=== PATIENT | female | born 1950 | race Caucasian/White ===

== ENCOUNTER 2019-02-25 16:38 | Inpatient (IN) | payer MEDICARE, MEDICAID ==
[~2019-02-25] VITALS: Ht 180.3 cm; Wt 147.3 kg
[~2019-02-25 16:38] MED LIST: CALC667T2 PO; CARSR60C PO; LEVO200T PO; SEVE800T8 PO; VIT1TABL50 PO
[2019-02-25] MEDS ORDERED: acetaminophen 325mg tablet PO ONE (17:05)
[2019-02-25 18:44] LABS: BASOPHILS % (AUTO) 0.1 % (0-1); EOSINOPHILS % (AUTO) 0.2 % (0-6); HEMATOCRIT 32.1 % (35.0-45.0); HEMOGLOBIN 10.8 g/dl (12.0-16.0); LYMPHOCYTES # (AUTO) 0.3 X10'3 (1.1-4.8); LYMPHOCYTES % (AUTO) 2.6 % (21-51); MEAN CORPUSCULAR HGB CONC 33.6 g/dL (33.0-36.5); MEAN CORPUSCULAR VOLUME 101.2 FL (78-98); MEAN PLATELET VOLUME 10.2 FL (7.4-10.4); MONOCYTES # (AUTO) 0.7 X10'3 (0-0.9); MONOCYTES % (AUTO) 6.1 % (2-12); NEUTROPHILS # (AUTO) 9.9 X10'3 (1.8-7.7); RED BLOOD COUNT 3.17 X10'6 (4.20-5.60); WHITE BLOOD COUNT 10.9 X10'3 (4.5-11.0)
[2019-02-25 18:51] LABS: PARTIAL THROMBOPLASTIN TIME 31 SECONDS (22-32)
[2019-02-25 19:04] LABS: ALANINE AMINOTRANSFERASE 19 U/L (12-78); ALBUMIN/GLOBULIN RATIO 0.6 (1.1-1.5); ALKALINE PHOSPHATASE 78 IU/L (46-116); ANION GAP 11 (8-16); ASPARTATE AMINO TRANSFERASE 12 U/L (10-37); BILIRUBIN,TOTAL 0.5 MG/DL (0.1-1.0); BLOOD UREA NITROGEN 34 MG/DL (7-18); BUN/CREATININE RATIO 5.1 (6.6-38.0); CALCIUM 9.1 MG/DL (8.5-10.1); CHLORIDE 99 MMOL/L (99-107); CREATININE 6.73 MG/DL (0.40-0.90); GLUCOSE 220 MG/DL (70-104); MAGNESIUM 1.8 MG/DL (1.5-2.4); PLATELET COUNT 78 X10'3 (140-440); POTASSIUM 3.9 MMOL/L (3.5-5.1); SODIUM 140 MMOL/L (135-145); TOTAL CARBON DIOXIDE 29.7 MMOL/L (24-32); eGFR 6 ML/MIN
[2019-02-25] MEDS ORDERED: normal saline 1000ML IV soln IVB ONE (19:05)
[2019-02-25] MEDS ORDERED: vancomycin/NS 1 GM ADD-VANTAGE 250 ML IV ONE (19:45)
[2019-02-25] MEDS ORDERED: piperacillin/tazo 3.375gm/50ml 50 ML IV ONE (19:45)
[2019-02-25 19:53] LABS: CLARITY,URINE CLOUDY (Clear); COLOR,URINE YELLOW (Yellow); GLUCOSE, URINE 100 mg/dl (Neg); KETONES,URINE NEGATIVE (Neg); LEUKOCYTE ESTERASE ,URINE MODERATE (Neg); NITRITES, URINE NEGATIVE (Neg); OCCULT BLOOD,URINE LARGE (Neg); PROTEIN,URINE 100 mg/dl (Neg); UROBILINOGEN,URINE 0.2 E.U/dL (0.2-1.0)
[2019-02-25 19:54] LABS: UA COLLECTION TYPE STRAIGHT CATH
[2019-02-25 19:59] LABS: BACTERIA,URINE 1+ /HPF (Neg); MUCUS STRANDS NONE SEEN /LPF (Neg); RBC,URINE 20-50 /HPF (0-2); SQUAMOUS EPITHELIAL CELL,UR FEW /LPF (FEW); WBC,URINE TNTC /HPF (0-4)
[2019-02-25] MEDS ORDERED: clindamycin 600mg/D5W 50ml 50 ML IV ONE (20:15)
[2019-02-25] MEDS ORDERED: DOCU-148 (20:20)
[2019-02-25] MEDS ORDERED: glucagon, human recombinant 1mg kit SUBCUT PRN (20:50)
[2019-02-25] MEDS ORDERED: acetaminophen 650mg rectal suppository RC PRN (20:50)
[2019-02-25] MEDS ORDERED: acetaminophen 325mg tablet PO PRN (20:50)
[2019-02-25] MEDS ORDERED: ipratropium/albuterol 3ml nebule NEB PRN (20:50)
[2019-02-25] MEDS ORDERED: MESSAGE TO PHARMACY PO ONE (20:50)
[2019-02-25] MEDS ORDERED: dextrose ORAL solution 15 GM/59 ML bottle PO PRN (20:50)
[2019-02-25] MEDS ORDERED: ondansetron/PF 4mg/2ml inj IV PRN ×2 (20:50→21:10)
[2019-02-25] MEDS ORDERED: dextrose 50%-water 50ml dispensing syringe IV PRN ×2 (20:50)
--- NOTE | 2019-02-25 20:59 | NUR ---
Patient to operating room at this time
[2019-02-25] MEDS: insulin glargine (Lantus) pen - multi-dose SQ SCH (21:00)
[2019-02-25] MEDS ORDERED: desflurane 240ml liquid inh. IH ONE (21:05)
[2019-02-25] MEDS ORDERED: ringers solution, lacted 1,000 ML IV SCH (21:08)
[2019-02-25] MEDS ORDERED: morphine 4 MG/ML inj SYRINge IV PRN ×2 (21:10)
[2019-02-25] MEDS ORDERED: proCHLORperazine 10 MG/2 ml inj IV PRN (21:10)
[2019-02-25] MEDS ORDERED: fentaNYL /PF 50mcg/ml 5ml ampule ONE (21:17)
[2019-02-25] MEDS ORDERED: midazolam 2 mg/2 ml injection ONE (21:17)
[2019-02-25] MEDS ORDERED: ATRACURIUM 10 MG/ML 5ML INJECTION IV ONE (21:20)
[2019-02-25] MEDS ORDERED: LIDOcaine 1%/PF 5ML 10 MG/ML VIAL ONE (21:26)
[2019-02-25] MEDS ORDERED: etomidate 2mg/ml inj. ONE (21:26)
--- NOTE | 2019-02-25 21:50 | NUR ---
Contacted patient's sister Myrima Avery @ [phone].
[2019-02-25 23:15] VITALS: BP 120/54
[2019-02-25 23:30] VITALS: BP 157/72
[2019-02-25] MEDS ORDERED: albuterol 2.5 MG/3 ML nebule NEB PRN (23:30)
[2019-02-25 23:45] VITALS: BP 179/89
[2019-02-25 23:45] LABS: ABG BASE EXCESS -0.2 mmol/L (-2.0-3.0); ABG HCO3 24.4 mmol/L (22.0-26.0); ABG OXYGEN SATURATION 99.5 % (95-98); ABG PCO2 (T) 40.4 mmHg (35.0-45.0); ABG PH (T) 7.401 (7.350-7.450); ABG PO2 (T) 181.8 mmHg (83-108); FCOHb 1.5 % (0.5-1.5); FMetHb 0.3 % (0.3-1.12); FO2Hb 97.7 % (94-100); MINUTE VOLUME 10 L/min; PATIENT TEMPERATURE 37.4; PEEP 5 cm H2O; RESPIRATORY RATE 14 b/min; RESPIRATORY RATE (OBSERVED) 14 b/min; TIDAL VOLUME 650 mL; TOTAL HEMOGLOBIN 11.1 G/dl (12.0-16.0)
[2019-02-26] VITALS (25 sets, daily range): BP systolic 84–144; BP diastolic 36–67
[2019-02-26] MEDS ORDERED: piperacillin/tazo 3.375gm/50ml 50 ML IV SCH
[2019-02-26] MEDS ORDERED: piperacillin/tazo 3.375gm/50ml 50 ML IV ONE (00:35)
[2019-02-26 00:41] LABS: BASOPHILS % (AUTO) 0.3 % (0-1); EOSINOPHILS % (AUTO) 0.1 % (0-6); HEMATOCRIT 31.2 % (35.0-45.0); HEMOGLOBIN 10.2 g/dl (12.0-16.0); LYMPHOCYTES # (AUTO) 0.4 X10'3 (1.1-4.8); LYMPHOCYTES % (AUTO) 3.5 % (21-51); MEAN CORPUSCULAR HEMOGLOBIN 33.1 PG (27.0-31.0); MEAN CORPUSCULAR HGB CONC 32.7 g/dL (33.0-36.5); MEAN CORPUSCULAR VOLUME 101.1 FL (78-98); MEAN PLATELET VOLUME 10.2 FL (7.4-10.4); MONOCYTES # (AUTO) 0.5 X10'3 (0-0.9); MONOCYTES % (AUTO) 4.7 % (2-12); NEUTROPHILS # (AUTO) 10.2 X10'3 (1.8-7.7); NEUTROPHILS % (AUTO) 91.4 % (42-75); PLATELET COUNT 84 X10'3 (140-440); RED BLOOD COUNT 3.09 X10'6 (4.20-5.60); RED CELL DISTRIBUTION WIDTH 14.8 % (11.5-14.5); WHITE BLOOD COUNT 11.1 X10'3 (4.5-11.0)
[2019-02-26] MEDS: insulin Lispro (HumaLOG) vial - multi-dose SQ SCH ×4 (00:47→19:25)
[2019-02-26 00:52] LABS: PARTIAL THROMBOPLASTIN TIME 31 SECONDS (22-32)
[2019-02-26 00:53] LABS: ALANINE AMINOTRANSFERASE 18 U/L (12-78); ALBUMIN 2.7 G/DL (3.4-5.0); ALBUMIN/GLOBULIN RATIO 0.6 (1.1-1.5); ALKALINE PHOSPHATASE 73 IU/L (46-116); ANION GAP 13 (8-16); ASPARTATE AMINO TRANSFERASE 12 U/L (10-37); BILIRUBIN,TOTAL 0.6 MG/DL (0.1-1.0); BLOOD UREA NITROGEN 37 MG/DL (7-18); CALCIUM 8.6 MG/DL (8.5-10.1); CHLORIDE 101 MMOL/L (99-107); CREATININE 7.41 MG/DL (0.40-0.90); GLUCOSE 242 MG/DL (70-104); MAGNESIUM 1.8 MG/DL (1.5-2.4); POTASSIUM 3.9 MMOL/L (3.5-5.1); SODIUM 142 MMOL/L (135-145); TOTAL CARBON DIOXIDE 28.1 MMOL/L (24-32); TOTAL PROTEIN 7.3 G/DL (6.4-8.2); eGFR 5 ML/MIN
[2019-02-26] MEDS: FENTANYL-0.9 % NACL/PF 100 ML IV PRN (02:39)
[2019-02-26] MEDS: midazolam 100mg in NS 100ml 100 ML IV PRN (02:40)
[2019-02-26] MEDS: ipratropium/albuterol 3ml nebule NEB SCH ×6 (02:52→23:25)
[2019-02-26 03:00] LABS: ABG BASE EXCESS 0.8 mmol/L (-2.0-3.0); ABG HCO3 26.2 mmol/L (22.0-26.0); ABG OXYGEN SATURATION 97.1 % (95-98); ABG PCO2 (T) 46.9 mmHg (35.0-45.0); ABG PH (T) 7.368 (7.350-7.450); ABG PO2 (T) 93.1 mmHg (83-108); FMetHb 0.3 % (0.3-1.12); FO2Hb 95.8 % (94-100); MINUTE VOLUME 10 L/min; PATIENT TEMPERATURE 37.6; PEEP 5 cm H2O; RESPIRATORY RATE 14 b/min; RESPIRATORY RATE (OBSERVED) 14 b/min; TIDAL VOLUME 650 mL; TOTAL HEMOGLOBIN 10.8 G/dl (12.0-16.0)
--- NOTE | 2019-02-26 06:29 | NUR ---
Problems reprioritized. Patient report given, questions answered & plan of care reviewed with MARSHA White.
[2019-02-26] MEDS ORDERED: docusate sod 100mg capsule PO SCH (08:00)
[2019-02-26] MEDS: pantoprazole 40 MG vial IV SCH (08:51)
[2019-02-26] MEDS: docusate sodium 100mg/10ml UD cup PO SCH ×2 (08:52→19:15)
[2019-02-26] MEDS: heparin, porcine 5000 units/ml vial SQ SCH ×2 (08:52→19:15)
[2019-02-26] MEDS: levoTHYROXINE sod inj. 100mcg/5 ml vial IV SCH (08:52)
[2019-02-26] MEDS: linezolid 600mg/300ml PREMIX 300 ML IV SCH ×2 (09:01→19:15)
--- NOTE | 2019-02-26 11:01 | NUR ---
Initial: Pt intubated s/p L labial I&D for necrotizing fasciitis; hx fever w/ nausea past 2 days, ESRD on HD, T2DM A1C <7. Diogenes 11 w/ labial wound. No edema present. NPO w/ OG in place; TF recs below in case prolonged intubation given healing needs. Started on zyvox and will need ed once stable prior to d/c. Will continue to monitor. Rec: 1. IF OGTF; Vital High Protein at 100ml/hr goal 2. IF TF; water flush 150ml Q4 3. IF TF; prealbumin Q /, daily wts 4. Once PO; MVI for wound healing needs 5. zyvox ed once stable prior to d/c 6. wts w/ HD Addendum: 02/26/19 at [address] Amended: Links added.
[2019-02-26 11:46] LABS: BASOPHILS % (AUTO) 0.4 % (0-1); EOSINOPHILS # (AUTO) 0.1 X10'3 (0-0.9); EOSINOPHILS % (AUTO) 0.6 % (0-6); HEMATOCRIT 30.1 % (35.0-45.0); HEMOGLOBIN 9.9 g/dl (12.0-16.0); LYMPHOCYTES # (AUTO) 0.5 X10'3 (1.1-4.8); LYMPHOCYTES % (AUTO) 5.7 % (21-51); MEAN CORPUSCULAR HEMOGLOBIN 33.2 PG (27.0-31.0); MEAN CORPUSCULAR VOLUME 100.7 FL (78-98); MONOCYTES # (AUTO) 0.4 X10'3 (0-0.9); NEUTROPHILS # (AUTO) 7.5 X10'3 (1.8-7.7); NEUTROPHILS % (AUTO) 88.3 % (42-75); PLATELET COUNT 84 X10'3 (140-440); RED BLOOD COUNT 2.99 X10'6 (4.20-5.60); RED CELL DISTRIBUTION WIDTH 14.9 % (11.5-14.5); WHITE BLOOD COUNT 8.5 X10'3 (4.5-11.0)
[2019-02-26 12:01] LABS: ALANINE AMINOTRANSFERASE 11 U/L (12-78); ALBUMIN 2.5 G/DL (3.4-5.0); ALBUMIN/GLOBULIN RATIO 0.6 (1.1-1.5); ALKALINE PHOSPHATASE 62 IU/L (46-116); ANION GAP 10 (8-16); ASPARTATE AMINO TRANSFERASE 12 U/L (10-37); BILIRUBIN,TOTAL 0.6 MG/DL (0.1-1.0); BLOOD UREA NITROGEN 41 MG/DL (7-18); BUN/CREATININE RATIO 5.1 (6.6-38.0); CALCIUM 8.9 MG/DL (8.5-10.1); CHLORIDE 101 MMOL/L (99-107); CREATININE 8.05 MG/DL (0.40-0.90); GLUCOSE 234 MG/DL (70-104); MAGNESIUM 1.8 MG/DL (1.5-2.4); PHOSPHORUS 2.3 MG/DL (2.3-4.5); POTASSIUM 3.7 MMOL/L (3.5-5.1); SODIUM 139 MMOL/L (135-145); TOTAL CARBON DIOXIDE 28.2 MMOL/L (24-32); eGFR 5 ML/MIN
[2019-02-26] MEDS: piperacillin/tazo 3.375gm/50ml 50 ML IV SCH (13:32)
[2019-02-26] MEDS: lactobacillus rhamnosus 10,000 MMU CELLS/CAPSULE PO SCH (19:15)
[2019-02-26] MEDS: insulin glargine (Lantus) pen - multi-dose SQ SCH (19:26)
[2019-02-27] VITALS (21 sets, daily range): BP systolic 103–133; BP diastolic 41–68
[2019-02-27] MEDS: piperacillin/tazo 3.375gm/50ml 50 ML IV SCH ×3 (00:51→23:09)
[2019-02-27] MEDS: mineral oil/petrolatum ophthal oint EACHEYE SCH ×4 (01:58→20:20)
[2019-02-27] MEDS: insulin Lispro (HumaLOG) vial - multi-dose SQ SCH ×4 (02:13→20:27)
[2019-02-27 02:25] LABS: BASOPHILS % (AUTO) 0.5 % (0-1); EOSINOPHILS # (AUTO) 0.1 X10'3 (0-0.9); HEMATOCRIT 26.7 % (35.0-45.0); HEMOGLOBIN 8.9 g/dl (12.0-16.0); LYMPHOCYTES # (AUTO) 0.5 X10'3 (1.1-4.8); LYMPHOCYTES % (AUTO) 6.4 % (21-51); MEAN CORPUSCULAR HEMOGLOBIN 33.8 PG (27.0-31.0); MEAN CORPUSCULAR HGB CONC 33.4 g/dL (33.0-36.5); MONOCYTES # (AUTO) 0.5 X10'3 (0-0.9); MONOCYTES % (AUTO) 5.9 % (2-12); NEUTROPHILS # (AUTO) 7.2 X10'3 (1.8-7.7); NEUTROPHILS % (AUTO) 86.2 % (42-75); PLATELET COUNT 90 X10'3 (140-440); RED BLOOD COUNT 2.64 X10'6 (4.20-5.60); WHITE BLOOD COUNT 8.3 X10'3 (4.5-11.0)
[2019-02-27 02:39] LABS: ALANINE AMINOTRANSFERASE 18 U/L (12-78); ALBUMIN 2.2 G/DL (3.4-5.0); ALBUMIN/GLOBULIN RATIO 0.5 (1.1-1.5); ALKALINE PHOSPHATASE 59 IU/L (46-116); ANION GAP 9 (8-16); ASPARTATE AMINO TRANSFERASE 21 U/L (10-37); BILIRUBIN,TOTAL 0.5 MG/DL (0.1-1.0); BLOOD UREA NITROGEN 48 MG/DL (7-18); BUN/CREATININE RATIO 5.2 (6.6-38.0); CHLORIDE 101 MMOL/L (99-107); CREATININE 9.29 MG/DL (0.40-0.90); GLUCOSE 181 MG/DL (70-104); PHOSPHORUS 2.5 MG/DL (2.3-4.5); POTASSIUM 3.8 MMOL/L (3.5-5.1); SODIUM 141 MMOL/L (135-145); TOTAL CARBON DIOXIDE 30.8 MMOL/L (24-32); TOTAL PROTEIN 6.8 G/DL (6.4-8.2); eGFR 4 ML/MIN
[2019-02-27] MEDS ORDERED: VANCOMYCIN LEVEL IV SCH (03:00)
[2019-02-27] MEDS: ipratropium/albuterol 3ml nebule NEB SCH ×6 (03:05→23:31)
[2019-02-27 03:15] LABS: ABG BASE EXCESS 4.2 mmol/L (-2.0-3.0); ABG HCO3 28.3 mmol/L (22.0-26.0); ABG OXYGEN SATURATION 95.7 % (95-98); ABG PCO2 (T) 41.8 mmHg (35.0-45.0); ABG PH (T) 7.451 (7.350-7.450); ABG PO2 (T) 75.2 mmHg (83-108); ALLEN'S TEST Positive; FCOHb 1.7 % (0.5-1.5); FMetHb 0.3 % (0.3-1.12); FO2Hb 93.8 % (94-100); MINUTE VOLUME 9 L/min; PATIENT TEMPERATURE 37.7; PEEP 5 cm H2O; RESPIRATORY RATE 12 b/min; RESPIRATORY RATE (OBSERVED) 12 b/min; TIDAL VOLUME 650 mL; TOTAL HEMOGLOBIN 9.4 G/dl (12.0-16.0)
--- NOTE | 2019-02-27 06:30 | NUR ---
Problems reprioritized. Patient report given, questions answered & plan of care reviewed with MARSHA Cisneros.
[2019-02-27] MEDS: midazolam 100mg in NS 100ml 100 ML IV PRN (08:49)
[2019-02-27] MEDS: FENTANYL-0.9 % NACL/PF 100 ML IV PRN (08:49)
[2019-02-27] MEDS: docusate sodium 100mg/10ml UD cup PO SCH ×2 (09:13→20:20)
[2019-02-27] MEDS: linezolid 600mg/300ml PREMIX 300 ML IV SCH ×2 (09:13→20:21)
[2019-02-27] MEDS: lactobacillus rhamnosus 10,000 MMU CELLS/CAPSULE PO SCH ×2 (09:14→20:20)
[2019-02-27] MEDS: heparin, porcine 5000 units/ml vial SQ SCH ×2 (09:14→20:20)
[2019-02-27] MEDS: levoTHYROXINE sod inj. 100mcg/5 ml vial IV SCH (09:14)
[2019-02-27] MEDS: pantoprazole 40 MG vial IV SCH (14:42)
--- NOTE | 2019-02-27 16:30 | NUR ---
sedation (Versed) left off most of afternoon to determine weather pt can be extubated. Awake and follows commands well but did not pass weaning parameters. Sedation turned back on.
--- NOTE | 2019-02-27 17:00 | NUR ---
Dressing to left labia changed per Dr Dang orders using sterile procedure. Old gauze packing removed with strong foul odor, drainage light brown in color. Picture taken and placed in chart. Redressed with dry gauze packing per order, followed by non adherant dressing and abd pad with paper tape to secure.
--- NOTE | 2019-02-27 18:30 | NUR ---
Patient in room CICU 2013. I have received report from MARSHA Cisneros and had the opportunity to ask questions and assume patient care.
--- NOTE | 2019-02-27 20:10 | NUR ---
Confirmed with TERESO Paredes that it is ok to have low dose Fentanyl running with the Zyvox choice of antibiotic. Also, she said to hold off on the Lactulose for now considering the possibility of contamination into the open labial site, day shift to check with wound care and underground distribution engineer/surgeon on how to proceed with bowel care maintenance.
[2019-02-27] MEDS: insulin glargine (Lantus) pen - multi-dose SQ SCH (20:28)
[2019-02-27] MEDS ORDERED: lactulose 20gm/30ml cup PO PRN (20:50)
[2019-02-28] VITALS (22 sets, daily range): BP systolic 92–142; BP diastolic 40–73
[2019-02-28] MEDS: mineral oil/petrolatum ophthal oint EACHEYE SCH ×4 (02:11→20:00)
[2019-02-28] MEDS: insulin Lispro (HumaLOG) vial - multi-dose SQ SCH ×3 (02:13→14:35)
[2019-02-28 03:05] LABS: BASOPHILS % (AUTO) 0.5 % (0-1); EOSINOPHILS # (AUTO) 0.2 X10'3 (0-0.9); EOSINOPHILS % (AUTO) 2.1 % (0-6); HEMATOCRIT 26.8 % (35.0-45.0); HEMOGLOBIN 8.9 g/dl (12.0-16.0); LYMPHOCYTES # (AUTO) 0.6 X10'3 (1.1-4.8); LYMPHOCYTES % (AUTO) 7.2 % (21-51); MEAN CORPUSCULAR HEMOGLOBIN 33.1 PG (27.0-31.0); MEAN CORPUSCULAR HGB CONC 33.1 g/dL (33.0-36.5); MEAN CORPUSCULAR VOLUME 100.1 FL (78-98); MEAN PLATELET VOLUME 10.2 FL (7.4-10.4); MONOCYTES # (AUTO) 0.4 X10'3 (0-0.9); MONOCYTES % (AUTO) 5.2 % (2-12); NEUTROPHILS # (AUTO) 6.5 X10'3 (1.8-7.7); PLATELET COUNT 109 X10'3 (140-440); RED BLOOD COUNT 2.68 X10'6 (4.20-5.60); RED CELL DISTRIBUTION WIDTH 14.9 % (11.5-14.5); WHITE BLOOD COUNT 7.6 X10'3 (4.5-11.0)
[2019-02-28 03:31] LABS: ALANINE AMINOTRANSFERASE 15 U/L (12-78); ALBUMIN 2.1 G/DL (3.4-5.0); ALBUMIN/GLOBULIN RATIO 0.5 (1.1-1.5); ALKALINE PHOSPHATASE 68 IU/L (46-116); ANION GAP 13 (8-16); ASPARTATE AMINO TRANSFERASE 21 U/L (10-37); BILIRUBIN,TOTAL 0.5 MG/DL (0.1-1.0); BLOOD UREA NITROGEN 58 MG/DL (7-18); BUN/CREATININE RATIO 5.5 (6.6-38.0); CHLORIDE 99 MMOL/L (99-107); GLUCOSE 169 MG/DL (70-104); MAGNESIUM 1.9 MG/DL (1.5-2.4); POTASSIUM 3.9 MMOL/L (3.5-5.1); SODIUM 139 MMOL/L (135-145); TOTAL CARBON DIOXIDE 26.9 MMOL/L (24-32); TOTAL PROTEIN 6.7 G/DL (6.4-8.2); eGFR 4 ML/MIN
[2019-02-28] MEDS: ipratropium/albuterol 3ml nebule NEB SCH ×6 (03:36→23:25)
[2019-02-28 04:05] LABS: ABG BASE EXCESS 1.9 mmol/L (-2.0-3.0); ABG HCO3 25.8 mmol/L (22.0-26.0); ABG OXYGEN SATURATION 96.3 % (95-98); ABG PCO2 (T) 37.7 mmHg (35.0-45.0); ABG PH (T) 7.453 (7.350-7.450); ABG PO2 (T) 82.2 mmHg (83-108); FCOHb 1.2 % (0.5-1.5); FMetHb 0.3 % (0.3-1.12); FO2Hb 94.9 % (94-100); MINUTE VOLUME 8 L/min; PATIENT TEMPERATURE 37.2; PEEP 5 cm H2O; RESPIRATORY RATE 12 b/min; RESPIRATORY RATE (OBSERVED) 12 b/min; TIDAL VOLUME 650 mL; TOTAL HEMOGLOBIN 9.4 G/dl (12.0-16.0)
--- NOTE | 2019-02-28 06:07 | NUR ---
Problems reprioritized. Patient report given, questions answered & plan of care reviewed with MARSHA Cisneros.
--- NOTE | 2019-02-28 06:12 | NUR ---
Patient in room CICU 2013. I have received report from MARSHA Short and had the opportunity to ask questions and assume patient care.
[2019-02-28] MEDS: docusate sodium 100mg/10ml UD cup PO SCH ×2 (08:00→20:00)
[2019-02-28] MEDS: heparin, porcine 5000 units/ml vial SQ SCH ×2 (09:41→20:39)
[2019-02-28] MEDS: pantoprazole 40 MG vial IV SCH (09:42)
[2019-02-28] MEDS: linezolid 600mg/300ml PREMIX 300 ML IV SCH ×2 (09:42→20:36)
[2019-02-28] MEDS: levoTHYROXINE sod inj. 100mcg/5 ml vial IV SCH (09:42)
[2019-02-28] MEDS: lactobacillus rhamnosus 10,000 MMU CELLS/CAPSULE PO SCH ×2 (09:43→20:00)
[2019-02-28] MEDS ORDERED: normal saline 1000ml 250 ML IV PRN (11:22)
[2019-02-28] MEDS ORDERED: normal saline 1000ml 100 ML IV PRN (11:22)
[2019-02-28] MEDS ORDERED: epoetin 20,000 units/ml inj IV ONE (11:25)
[2019-02-28] MEDS ORDERED: LIDOcaine 1% (10mg/ml) 2ml vial SQ ONE (11:25)
--- NOTE | 2019-02-28 12:22 | NUR ---
RECOMMEND: 1. Daily bathing with no rinse skin cleanser. 2. Cream/Lotion to be applied to skin after bathing. 3. Hyun care Q shift and prn soiling followed by with Barrier Cream. 4. Turn patient Q 1-2 hrs and reposition with pillows. 5. Float heels to offload pressure.
--- NOTE | 2019-02-28 12:27 | NUR ---
WOUND INFECTION EDUCATION PROVIDED BY WOUND CARE 1. Patient instructed to call their primary doctor, or go the ED immediately if any of the following symptoms occur: * Increased pain in wound * Increase in drainage from the wound * Redness in the skin surrounding the wound * Warmth in the skin surrounding the wound * Bleeding from the wound * Temperature of 101 or greater 2. If any of these occur while in the hospital tell a nurse immediately. Addendum: 02/28/19 at 1229 by Sheyla Berg RN Amended: Links added.
[2019-02-28] MEDS: piperacillin/tazo 3.375gm/50ml 50 ML IV SCH (12:44)
[2019-02-28] MEDS ORDERED: racepinephrine 11.25mg/0.5ml nebule IH PRN (14:15)
--- NOTE | 2019-02-28 18:20 | NUR ---
Patient in room CICU 2012. I have received report from Amelia LARSON and had the opportunity to ask questions and assume patient care. Pt resting in bed on 2LNC with spo2 at 96%, no c/o pain, dialysis completing at this time, no s/s of distress. Please see IV flowsheet, eMAR, EMR and interventions for further information. All monitoring alarms audible. Will continue to monitor.
[2019-02-28] MEDS: insulin glargine (Lantus) pen - multi-dose SQ SCH (20:43)
[2019-03-01] VITALS (22 sets, daily range): BP systolic 98–128; BP diastolic 43–65
[2019-03-01] MEDS: piperacillin/tazo 3.375gm/50ml 50 ML IV SCH ×2 (00:58→13:43)
[2019-03-01] MEDS: mineral oil/petrolatum ophthal oint EACHEYE SCH ×4 (02:00→19:00)
[2019-03-01 02:30] LABS: BASOPHILS % (AUTO) 0.3 % (0-1); EOSINOPHILS # (AUTO) 0.2 X10'3 (0-0.9); EOSINOPHILS % (AUTO) 2.9 % (0-6); HEMATOCRIT 28.6 % (35.0-45.0); HEMOGLOBIN 9.3 g/dl (12.0-16.0); LYMPHOCYTES # (AUTO) 0.4 X10'3 (1.1-4.8); LYMPHOCYTES % (AUTO) 5.8 % (21-51); MEAN CORPUSCULAR HEMOGLOBIN 32.9 PG (27.0-31.0); MEAN CORPUSCULAR HGB CONC 32.4 g/dL (33.0-36.5); MEAN CORPUSCULAR VOLUME 101.5 FL (78-98); MEAN PLATELET VOLUME 8.8 FL (7.4-10.4); MONOCYTES # (AUTO) 0.4 X10'3 (0-0.9); MONOCYTES % (AUTO) 5.7 % (2-12); NEUTROPHILS # (AUTO) 6.3 X10'3 (1.8-7.7); NEUTROPHILS % (AUTO) 85.3 % (42-75); PLATELET COUNT 110 X10'3 (140-440); RED BLOOD COUNT 2.82 X10'6 (4.20-5.60); RED CELL DISTRIBUTION WIDTH 15.4 % (11.5-14.5); WHITE BLOOD COUNT 7.4 X10'3 (4.5-11.0)
[2019-03-01 02:42] LABS: ALANINE AMINOTRANSFERASE 22 U/L (12-78); ALBUMIN 2.1 G/DL (3.4-5.0); ALBUMIN/GLOBULIN RATIO 0.4 (1.1-1.5); ALKALINE PHOSPHATASE 75 IU/L (46-116); ANION GAP 9 (8-16); ASPARTATE AMINO TRANSFERASE 20 U/L (10-37); BILIRUBIN,TOTAL 0.4 MG/DL (0.1-1.0); BLOOD UREA NITROGEN 34 MG/DL (7-18); BUN/CREATININE RATIO 4.9 (6.6-38.0); CALCIUM 8.7 MG/DL (8.5-10.1); CHLORIDE 100 MMOL/L (99-107); GLUCOSE 131 MG/DL (70-104); MAGNESIUM 1.9 MG/DL (1.5-2.4); PHOSPHORUS 4.1 MG/DL (2.3-4.5); SODIUM 139 MMOL/L (135-145); TOTAL CARBON DIOXIDE 29.9 MMOL/L (24-32); TOTAL PROTEIN 6.9 G/DL (6.4-8.2); eGFR 6 ML/MIN
[2019-03-01] MEDS: ipratropium/albuterol 3ml nebule NEB SCH ×6 (03:10→22:54)
--- NOTE | 2019-03-01 06:26 | NUR ---
Problems reprioritized. Patient report given, questions answered & plan of care reviewed with Amelia LARSON.
--- NOTE | 2019-03-01 06:38 | NUR ---
Patient in room CICU 2013. I have received report from MARSHA Perla and had the opportunity to ask questions and assume patient care.
[2019-03-01] MEDS: levoTHYROXINE sod inj. 100mcg/5 ml vial IV SCH (07:33)
[2019-03-01] MEDS: heparin, porcine 5000 units/ml vial SQ SCH ×2 (07:33→20:25)
[2019-03-01] MEDS: linezolid 600mg/300ml PREMIX 300 ML IV SCH ×2 (07:33→20:22)
[2019-03-01] MEDS: docusate sodium 100mg/10ml UD cup PO SCH ×2 (08:00→20:25)
[2019-03-01] MEDS: pantoprazole 40 MG vial IV SCH (08:44)
[2019-03-01] MEDS: lactobacillus rhamnosus 10,000 MMU CELLS/CAPSULE PO SCH ×2 (08:48→20:25)
[2019-03-01] MEDS: insulin Lispro (HumaLOG) vial - multi-dose SQ SCH ×2 (13:36→18:28)
[2019-03-01] MEDS: insulin glargine (Lantus) pen - multi-dose SQ SCH (20:30)
--- NOTE | 2019-03-01 21:41 | NUR ---
Problems reprioritized. Patient report given, questions answered & plan of care reviewed with Luc LARSON. Pt will be transferred to room 3013B.
--- NOTE | 2019-03-01 21:42 | NUR ---
Patient in room PCU 3013. I have received report from Minda LARSON and had the opportunity to ask questions and assume patient care.
--- NOTE | 2019-03-01 22:00 | NUR ---
Pt transferred to 3013B with all belongings, pt stable upon transfer, no s/s of distress, bedside report complete with Humble LARSON.
[2019-03-01] MEDS ORDERED: diphenhydrAMINE 25mg capsule PO PRN (22:55)
[2019-03-02] MEDS: piperacillin/tazo 3.375gm/50ml 50 ML IV SCH ×3 (00:04→23:31)
[2019-03-02 02:00] VITALS: BP 153/67
[2019-03-02] MEDS: ipratropium/albuterol 3ml nebule NEB SCH ×6 (03:00→23:50)
[2019-03-02 05:39] LABS: BASOPHILS % (AUTO) 0.3 % (0-1); EOSINOPHILS # (AUTO) 0.2 X10'3 (0-0.9); EOSINOPHILS % (AUTO) 3.2 % (0-6); HEMATOCRIT 28.4 % (35.0-45.0); HEMOGLOBIN 9.4 g/dl (12.0-16.0); LYMPHOCYTES # (AUTO) 0.5 X10'3 (1.1-4.8); LYMPHOCYTES % (AUTO) 6.5 % (21-51); MEAN CORPUSCULAR HEMOGLOBIN 33.8 PG (27.0-31.0); MEAN CORPUSCULAR HGB CONC 33.1 g/dL (33.0-36.5); MEAN CORPUSCULAR VOLUME 102.2 FL (78-98); MEAN PLATELET VOLUME 9.2 FL (7.4-10.4); MONOCYTES # (AUTO) 0.5 X10'3 (0-0.9); MONOCYTES % (AUTO) 5.9 % (2-12); NEUTROPHILS # (AUTO) 6.4 X10'3 (1.8-7.7); NEUTROPHILS % (AUTO) 84.1 % (42-75); PLATELET COUNT 111 X10'3 (140-440); RED BLOOD COUNT 2.78 X10'6 (4.20-5.60); RED CELL DISTRIBUTION WIDTH 15.2 % (11.5-14.5); WHITE BLOOD COUNT 7.7 X10'3 (4.5-11.0)
--- NOTE | 2019-03-02 06:10 | NUR ---
Patient in room PCU 3013. I have received report from Tyson LARSON and had the opportunity to ask questions and assume patient care.
--- NOTE | 2019-03-02 06:16 | NUR ---
Problems reprioritized. Patient report given, questions answered & plan of care reviewed with Jens RN/Brinda LARSON.
[2019-03-02 06:17] LABS: ALANINE AMINOTRANSFERASE 22 U/L (12-78); ALBUMIN 2.1 G/DL (3.4-5.0); ALBUMIN/GLOBULIN RATIO 0.5 (1.1-1.5); ALKALINE PHOSPHATASE 75 IU/L (46-116); ANION GAP 13 (8-16); ASPARTATE AMINO TRANSFERASE 19 U/L (10-37); BILIRUBIN,TOTAL 0.4 MG/DL (0.1-1.0); BLOOD UREA NITROGEN 48 MG/DL (7-18); BUN/CREATININE RATIO 5.5 (6.6-38.0); CALCIUM 8.8 MG/DL (8.5-10.1); CHLORIDE 99 MMOL/L (99-107); CREATININE 8.66 MG/DL (0.40-0.90); GLUCOSE 106 MG/DL (70-104); MAGNESIUM 2.1 MG/DL (1.5-2.4); PHOSPHORUS 5.3 MG/DL (2.3-4.5); POTASSIUM 4.4 MMOL/L (3.5-5.1); SODIUM 139 MMOL/L (135-145); TOTAL CARBON DIOXIDE 27.1 MMOL/L (24-32); TOTAL PROTEIN 6.7 G/DL (6.4-8.2); eGFR 5 ML/MIN
--- NOTE | 2019-03-02 06:25 | NUR ---
Patient in room PCU 3011. I have received report from Humble and had the opportunity to ask questions and assume patient care.
[2019-03-02 07:00] VITALS: BP 105/53
[2019-03-02] MEDS ORDERED: normal saline 1000ml 250 ML IV PRN (08:00)
[2019-03-02] MEDS: docusate sodium 100mg/10ml UD cup PO SCH ×2 (08:00→19:16)
[2019-03-02] MEDS ORDERED: LIDOcaine 1% (10mg/ml) 2ml vial SQ ONE (08:00)
[2019-03-02] MEDS ORDERED: epoetin 20,000 units/ml inj IV ONE (08:00)
[2019-03-02] MEDS ORDERED: heparin 1,000unit/ml 10ml vial 10 ML IV ONE (08:00)
[2019-03-02] MEDS: lactobacillus rhamnosus 10,000 MMU CELLS/CAPSULE PO SCH ×2 (09:13→19:16)
[2019-03-02] MEDS: pantoprazole 40 MG vial IV SCH (09:14)
[2019-03-02] MEDS: levoTHYROXINE sod inj. 100mcg/5 ml vial IV SCH (09:14)
[2019-03-02] MEDS: heparin, porcine 5000 units/ml vial SQ SCH ×2 (09:28→19:15)
[2019-03-02] MEDS: insulin Lispro (HumaLOG) vial - multi-dose SQ SCH ×2 (09:34→19:13)
[2019-03-02 11:00] VITALS: BP 116/60
[2019-03-02 15:00] VITALS: BP 121/54
--- NOTE | 2019-03-02 16:42 | NUR ---
Reassessment: Pt continues with average 50% PO intake however down to 0-25% at lunch today. Pt seen at bedside reports low appetite and states she doesn't like the pureed texture. Informed pt that this diet is appropriate for her at this time per ST recs and pt expressed understanding. Pt agreeable to Nepro TID to optimize PO intake at this time given increased protein needs r/t HD and wound. ONS to be sent pending MD verification in [facility]. Pt requests no milk to drink, d/w dietary. Pt recently receiving Zyvox with last dose given 03/01 per med list, pt was provided with written and verbal low tyramine nutrition therapy education with RD contact information. LBM 03/02. Will continue to follow. Recommend: 1. continue pureed diet, thin liquids, carb controlled per ST 2. Nepro TID, to be sent pending MD verification in [facility] 3. Continue bowel care 4. weight per rx Addendum: 03/02/19 at [address] Amended: Links added.
[2019-03-02] MEDS: acetaminophen 325mg tablet PO PRN (17:30)
[2019-03-02 18:00] VITALS: BP 122/54
--- NOTE | 2019-03-02 18:10 | NUR ---
Problems reprioritized. Patient report given, questions answered & plan of care reviewed with Daniel LARSON.
--- NOTE | 2019-03-02 18:10 | NUR ---
I have reviewed Myrna LARSON ([place]) charting and I agree with it.
--- NOTE | 2019-03-02 18:22 | NUR ---
Patient in room PCU 3013. I have received report from Jens RN and MARSHA Parry and had the opportunity to ask questions and assume patient care.
--- NOTE | 2019-03-02 18:29 | NUR ---
Problems reprioritized. Patient report given, questions answered & plan of care reviewed with Addendum: 03/02/19 at 1831 by Brinda Jain RN Problems reprioritized. Patient report given, questions answered & plan of care reviewed with Rebeca
[2019-03-02] MEDS: NUT.TX.IMP.RENAL FXN,LAC-REDUC (Nepro) 237 ML VANILLA PO SCH (19:16)
[2019-03-02] MEDS: insulin glargine (Lantus) pen - multi-dose SQ SCH (21:11)
[2019-03-02 22:00] VITALS: BP 118/40
[2019-03-03] VITALS (8 sets, daily range): BP systolic 100–142; BP diastolic 40–63
[2019-03-03] MEDS: ipratropium/albuterol 3ml nebule NEB SCH ×6 (03:00→23:50)
[2019-03-03 05:50] LABS: BASOPHILS % (AUTO) 0.5 % (0-1); EOSINOPHILS # (AUTO) 0.2 X10'3 (0-0.9); EOSINOPHILS % (AUTO) 2.5 % (0-6); HEMATOCRIT 30.6 % (35.0-45.0); LYMPHOCYTES # (AUTO) 0.4 X10'3 (1.1-4.8); LYMPHOCYTES % (AUTO) 4.4 % (21-51); MEAN CORPUSCULAR HEMOGLOBIN 33.7 PG (27.0-31.0); MEAN CORPUSCULAR HGB CONC 32.6 g/dL (33.0-36.5); MEAN CORPUSCULAR VOLUME 103.5 FL (78-98); MEAN PLATELET VOLUME 8.4 FL (7.4-10.4); MONOCYTES # (AUTO) 0.5 X10'3 (0-0.9); MONOCYTES % (AUTO) 6.2 % (2-12); NEUTROPHILS # (AUTO) 7.2 X10'3 (1.8-7.7); NEUTROPHILS % (AUTO) 86.4 % (42-75); PLATELET COUNT 107 X10'3 (140-440); RED BLOOD COUNT 2.96 X10'6 (4.20-5.60); RED CELL DISTRIBUTION WIDTH 15.2 % (11.5-14.5); WHITE BLOOD COUNT 8.3 X10'3 (4.5-11.0)
--- NOTE | 2019-03-03 06:09 | NUR ---
Problems reprioritized. Patient report given, questions answered & plan of care reviewed with MARSHA Colindres.
--- NOTE | 2019-03-03 06:10 | NUR ---
Problems reprioritized. Patient report given, questions answered & plan of care reviewed with Daniel LARSON.
--- NOTE | 2019-03-03 06:22 | NUR ---
Patient in room PCU 3013. I have received report from Rebeca and had the opportunity to ask questions and assume patient care.
[2019-03-03 06:23] LABS: ALANINE AMINOTRANSFERASE 23 U/L (12-78); ALBUMIN 2.3 G/DL (3.4-5.0); ALBUMIN/GLOBULIN RATIO 0.5 (1.1-1.5); ALKALINE PHOSPHATASE 69 IU/L (46-116); ANION GAP 10 (8-16); ASPARTATE AMINO TRANSFERASE 17 U/L (10-37); BILIRUBIN,TOTAL 0.4 MG/DL (0.1-1.0); BLOOD UREA NITROGEN 30 MG/DL (7-18); BUN/CREATININE RATIO 4.8 (6.6-38.0); CALCIUM 8.8 MG/DL (8.5-10.1); CHLORIDE 102 MMOL/L (99-107); CREATININE 6.29 MG/DL (0.40-0.90); GLUCOSE 108 MG/DL (70-104); PHOSPHORUS 4.4 MG/DL (2.3-4.5); POTASSIUM 4.4 MMOL/L (3.5-5.1); SODIUM 141 MMOL/L (135-145); TOTAL CARBON DIOXIDE 28.9 MMOL/L (24-32); eGFR 7 ML/MIN
[2019-03-03] MEDS: lactobacillus rhamnosus 10,000 MMU CELLS/CAPSULE PO SCH ×2 (07:59→19:25)
[2019-03-03] MEDS: levoTHYROXINE 100mcg tablet PO SCH (07:59)
[2019-03-03] MEDS: docusate sodium 100mg/10ml UD cup PO SCH ×3 (08:00→19:31)
[2019-03-03] MEDS: heparin, porcine 5000 units/ml vial SQ SCH ×2 (08:01→19:26)
[2019-03-03] MEDS: NUT.TX.IMP.RENAL FXN,LAC-REDUC (Nepro) 237 ML VANILLA PO SCH ×3 (08:01→18:00)
[2019-03-03] MEDS: pantoprazole 40mg Tablet.DR PO SCH (08:01)
[2019-03-03] MEDS: insulin Lispro (HumaLOG) vial - multi-dose SQ SCH ×3 (09:21→18:47)
--- NOTE | 2019-03-03 11:40 | NUR ---
I have reviewed and agree with all medications administered and interventions performed by [facility] Student(UMBERTO VICENTE) Addendum: 03/03/19 at 1140 [address]se [address] RT Amended: Links added.
[2019-03-03] MEDS: piperacillin/tazo 3.375gm/50ml 50 ML IV SCH ×2 (11:56→23:35)
--- NOTE | 2019-03-03 12:00 | NUR ---
Primary RN notified of pt's low FSBG. Pt states she feels her sugar is low.
[2019-03-03] MEDS: dextrose ORAL solution 15 GM/59 ML bottle PO PRN ×2 (12:04→12:42)
[2019-03-03] MEDS: acetaminophen 325mg tablet PO PRN ×2 (13:15→19:25)
--- NOTE | 2019-03-03 13:25 | NUR ---
1200 Blood sugar was 66, glucose shot administered per protocol, 15 minutes later the patients blood sugar was 69, patient stated she was not going to eat much. Per protocol, another glucose shot administered and effective in increasing blood sugar to 93.
--- NOTE | 2019-03-03 18:00 | NUR ---
I have reviewed Myrna LARSON ([place]) charting and I agree with it.
--- NOTE | 2019-03-03 18:15 | NUR ---
Problems reprioritized. Patient report given, questions answered & plan of care reviewed with Franny LARSON.
--- NOTE | 2019-03-03 18:35 | NUR ---
Patient in room PCU 3011. I have received report from JOHANNA GIBBS RN and had the opportunity to ask questions and assume patient care. Addendum: 03/03/19 at 1836 by Carole Agee RN PLEASE DISREGARD ROOM NUMBER, IT IS 3013 B
[2019-03-03] MEDS: insulin glargine (Lantus) pen - multi-dose SQ SCH (21:05)
--- NOTE | 2019-03-03 22:22 | NUR ---
Tech took BP and it was 80/40, bolus of fluids running now. Addendum: 03/03/19 at 2226 by Carole Agee RN after getting the 80/40 BP on patient, tech rechecked manually and got 100/60. Bolus is running, will recheck after bolus is done.
--- NOTE | 2019-03-03 22:42 | NUR ---
THE BOLUS WAS STOPPED AND BP RECHECKED RESULTING IN 133/63.
[2019-03-04 06:00] VITALS: BP 90/53
--- NOTE | 2019-03-04 06:10 | NUR ---
Patient in room PCU 3013. I have received report from Franny LARSON and had the opportunity to ask questions and assume patient care.
--- NOTE | 2019-03-04 06:12 | NUR ---
Problems reprioritized. Patient report given, questions answered & plan of care reviewed with SAI.
[2019-03-04 06:44] LABS: ALANINE AMINOTRANSFERASE 21 U/L (12-78); ALBUMIN 2.3 G/DL (3.4-5.0); ALBUMIN/GLOBULIN RATIO 0.5 (1.1-1.5); ALKALINE PHOSPHATASE 77 IU/L (46-116); ANION GAP 11 (8-16); ASPARTATE AMINO TRANSFERASE 12 U/L (10-37); BILIRUBIN,TOTAL 0.3 MG/DL (0.1-1.0); BLOOD UREA NITROGEN 44 MG/DL (7-18); BUN/CREATININE RATIO 5.7 (6.6-38.0); CHLORIDE 101 MMOL/L (99-107); CREATININE 7.76 MG/DL (0.40-0.90); GLUCOSE 140 MG/DL (70-104); MAGNESIUM 2.3 MG/DL (1.5-2.4); PHOSPHORUS 5.7 MG/DL (2.3-4.5); POTASSIUM 4.2 MMOL/L (3.5-5.1); SODIUM 139 MMOL/L (135-145); TOTAL CARBON DIOXIDE 26.8 MMOL/L (24-32); TOTAL PROTEIN 6.8 G/DL (6.4-8.2); eGFR 5 ML/MIN
[2019-03-04] MEDS: ipratropium/albuterol 3ml nebule NEB SCH ×3 (07:29→15:14)
[2019-03-04 07:38] LABS: BASOPHILS % (AUTO) 0.2 % (0-1); EOSINOPHILS # (AUTO) 0.2 X10'3 (0-0.9); EOSINOPHILS % (AUTO) 2.3 % (0-6); HEMOGLOBIN 10.4 g/dl (12.0-16.0); LYMPHOCYTES # (AUTO) 0.5 X10'3 (1.1-4.8); LYMPHOCYTES % (AUTO) 6.7 % (21-51); MEAN CORPUSCULAR HEMOGLOBIN 33.2 PG (27.0-31.0); MEAN CORPUSCULAR HGB CONC 32.6 g/dL (33.0-36.5); MEAN CORPUSCULAR VOLUME 101.9 FL (78-98); MEAN PLATELET VOLUME 8.5 FL (7.4-10.4); MONOCYTES # (AUTO) 0.3 X10'3 (0-0.9); NEUTROPHILS % (AUTO) 86.8 % (42-75); PLATELET COUNT 101 X10'3 (140-440); RED BLOOD COUNT 3.14 X10'6 (4.20-5.60); RED CELL DISTRIBUTION WIDTH 15.2 % (11.5-14.5); WHITE BLOOD COUNT 8.1 X10'3 (4.5-11.0)
[2019-03-04] MEDS ORDERED: normal saline 1000ml 250 ML IV PRN (08:00)
[2019-03-04] MEDS ORDERED: heparin 1,000unit/ml 10ml vial 10 ML IV ONE (08:00)
[2019-03-04] MEDS: docusate sodium 100mg/10ml UD cup PO SCH (08:00)
[2019-03-04] MEDS ORDERED: LIDOcaine 1% (10mg/ml) 2ml vial SQ ONE (08:00)
[2019-03-04] MEDS ORDERED: epoetin 20,000 units/ml inj IV ONE (08:00)
[2019-03-04] MEDS: NUT.TX.IMP.RENAL FXN,LAC-REDUC (Nepro) 237 ML VANILLA PO SCH ×2 (08:00→13:09)
[2019-03-04] MEDS: levoTHYROXINE 100mcg tablet PO SCH (08:11)
[2019-03-04] MEDS: lactobacillus rhamnosus 10,000 MMU CELLS/CAPSULE PO SCH (08:12)
[2019-03-04] MEDS: pantoprazole 40mg Tablet.DR PO SCH (08:12)
[2019-03-04] MEDS: heparin, porcine 5000 units/ml vial SQ SCH (08:13)
[2019-03-04] MEDS: insulin Lispro (HumaLOG) vial - multi-dose SQ SCH ×2 (09:20→13:48)
[2019-03-04] MEDS: acetaminophen 325mg tablet PO PRN (10:18)
[2019-03-04 11:00] VITALS: BP 140/60
[2019-03-04 15:00] VITALS: BP 122/45
[2019-03-04] MEDS: piperacillin/tazo 3.375gm/50ml 50 ML IV SCH (15:35)
--- NOTE | 2019-03-04 16:45 | NUR ---
Pt's Marshall Cath removed. 10ml of saline removed from balloon tip. Marshall removed, tip intact. Pt tolerated removal well.
--- NOTE | 2019-03-04 17:15 | NUR ---
Pt transfered to [facility]. Report called to Mattie at [facility]. Pt's belongings gathered and sent with Pt and [employer] personal and Pt. Pt wheeled down to lobby with [employer] personal and left to [facility] in [facility]
== END 2019-03-04 17:29 | DRG 500 ==
LOC: ER 16:39 → CICU 2S 22:32 → PCU 3S 03-01 21:02
PROC: 5A1945Z Respiratory Ventilation, 24-96 Consecutive Hours (ICD-10-PCS; 2019-02-25)
PROC: 5A1D70Z Performance of Urinary Filtration, Intermittent, Less than 6 Hours Per Day (ICD-10-PCS; 2019-02-25)
PROC: 02HV33Z Insertion of Infusion Device into Superior Vena Cava, Percutaneous Approach (ICD-10-PCS; 2019-02-25)
PROC: B548ZZA Ultrasonography of Superior Vena Cava, Guidance (ICD-10-PCS; 2019-02-25)
PROC: 0MBK0ZZ Excision of Perineum Bursa and Ligament, Open Approach (ICD-10-PCS; principal; 2019-02-26)
PROC: 5A1D70Z Performance of Urinary Filtration, Intermittent, Less than 6 Hours Per Day (ICD-10-PCS; 2019-02-28)
PROC: 5A1D70Z Performance of Urinary Filtration, Intermittent, Less than 6 Hours Per Day (ICD-10-PCS; 2019-03-02)
PROC: 5A1D70Z Performance of Urinary Filtration, Intermittent, Less than 6 Hours Per Day (ICD-10-PCS; 2019-03-04)
DX: M72.6 Necrotizing fasciitis (principal); N18.6 End stage renal disease; J96.00 Acute respiratory failure, unspecified whether with hypoxia or hypercapnia; N76.4 Abscess of vulva; I12.0 Hypertensive chronic kidney disease with stage 5 chronic kidney disease or end stage renal disease; Z68.42 Body mass index [BMI] 45.0-49.9, adult; J44.9 Chronic obstructive pulmonary disease, unspecified; E03.9 Hypothyroidism, unspecified; E11.22 Type 2 diabetes mellitus with diabetic chronic kidney disease; E66.01 Morbid (severe) obesity due to excess calories; I25.10 Atherosclerotic heart disease of native coronary artery without angina pectoris; Z86.718 Personal history of other venous thrombosis and embolism; Z99.2 Dependence on renal dialysis; Z79.899 Other long term (current) drug therapy; Z93.0 Tracheostomy status; Z90.49 Acquired absence of other specified parts of digestive tract
CPT/HCPCS: 36415; 36600; 71045; 71250; 74176; 76937; 80053; 81001; 82803; 82948; 83036; 83605; 83735; 84100; 84145; 84443; 85018; 85025; 85610; 85730; 86885; 86900; 86901; 87040; 87070; 87075; 87076; 87077; 87081; 87088; 87185; 87186; 87502; 87503; 92508; 92616; 93005; 94002; 94003; 94640; 94760; 97110; 97116; 97161; 97530; 99285; A4618; A6253; A6449; A7000; C9113; G0257; G0378; J1644; J1815; J2001; J2020; J2250; J2405; J2543; J3010; J3370; J3490; J7120; Q0163; Q4081